=== PATIENT | male | born 1970 | race African-American/Black ===

== ENCOUNTER 2024-07-23 07:08 | Outpatient (CLI) | payer OTHER ==
[2024-07-23] MEDS ORDERED: GASTROGRAFIN 30 ML BOT ONE (09:05)
[2024-07-23] MEDS ORDERED: Iopamidol 370 76% 100 ML VIAL ONE (09:05)
== END 2024-07-23 07:09 | disposition home or self-care (01) ==
LOC: CT 07:08
PROVIDERS: ATTEND Student in an Organized Health Care Education/Training Program
DX: D64.9 Anemia, unspecified (principal); R74.8 Abnormal levels of other serum enzymes; R63.4 Abnormal weight loss; R59.0 Localized enlarged lymph nodes; R91.1 Solitary pulmonary nodule; K76.9 Liver disease, unspecified; M19.90 Unspecified osteoarthritis, unspecified site; Z87.19 Personal history of other diseases of the digestive system
CPT/HCPCS: 74178; Q9963; Q9967

== ENCOUNTER 2024-09-05 13:16 | Outpatient (CLI) | payer OTHER | END 2024-09-05 13:17 | disposition home or self-care (01) | LOC: SCSRAD 13:16 | PROVIDERS: ATTEND Student in an Organized Health Care Education/Training Program | DX: R63.4 Abnormal weight loss (principal) | CPT/HCPCS: 71046 ==

== ENCOUNTER 2024-09-08 11:31 | Outpatient (CLI) | payer OTHER | END 2024-09-08 11:32 | disposition home or self-care (01) | LOC: SCSRAD 11:31 | PROVIDERS: ATTEND Student in an Organized Health Care Education/Training Program | DX: M16.11 Unilateral primary osteoarthritis, right hip (principal) ==